=== PATIENT | male | born 1960 | race Caucasian/White ===

== ENCOUNTER 2018-10-19 08:05 | Emergency (ER) | payer BC ==
[2018-10-19] MEDS ORDERED: Sodium Chloride 0.9% 1,000 ML IV ONE (08:47)
[2018-10-19] MEDS ORDERED: Sodium Chloride 0.9% 10 ML Syringe FLUSH PRN (08:47)
[2018-10-19] MEDS ORDERED: Sodium Chloride 0.9% 2.5 ML Syringe FLUSH PRN (08:47)
[2018-10-19] MEDS ORDERED: Ketorolac 30 MG/ML SDV IVPUSH ONE (08:48)
--- NOTE | 2018-10-19 08:57 | EDM.PDOC ---
ED HPI GENERAL MEDICAL PROBLEM - General Chief Complaint: Flank Pain Stated Complaint: LOWER BACK PAIN Time Seen by Provider: 10/19/18 08:07 Source of Information: Reports: Patient History Limitations: Reports: No Limitations - History of Present Illness INITIAL COMMENTS - FREE TEXT/NARRATIVE: History of present illness: []Presents with left flank pain that started last night around 8 PM. Patient noted blood in his urine last week and has had an increase in pain that has moved now to his left lower quadrant. He denies any fevers, chills, nausea, vomiting or diarrhea. Review of systems: As per history of present illness and below otherwise all systems reviewed and negative. Past medical history: As per history of present illness and as reviewed below otherwise noncontributory. Surgical history: As per history of present illness and as reviewed below otherwise noncontributory. Social history: No reported history of drug or alcohol abuse. Family history: As per history of present illness and as reviewed below otherwise noncontributory. Physical exam: General: Well developed, well nourished in NAD HEENT: Atraumatic, normocephalic, pupils reactive, negative for conjunctival pallor or scleral icterus, mucous membranes moist, throat clear, neck supple, nontender, trachea midline. Lungs: Clear to auscultation, breath sounds equal bilaterally, chest nontender. Heart: S1S2, regular, negative for clicks, rubs, or JVD. Abdomen: NABS, Soft, nondistended, tender left lower quadrant. Negative for masses or hepatosplenomegaly. Negative for costovertebral tenderness. Pelvis: Stable nontender. Genitourinary: Deferred. Rectal: Deferred. Extremities: Atraumatic, negative for cords or calf pain. Neurovascular unremarkable. Neuro: Awake, alert, oriented. Cranial nerves II through XII unremarkable. Cerebellum unremarkable. Motor and sensory unremarkable throughout. Exam nonfocal. Skin:warm and dry Diagnostics: CDC, chemistry, UA, CT abdomen and pelvis showing an 8 mm kidney stone obstructing UVJ Therapeutics: IV Hydration ED Course: Stable Impression: Ureterolithiasis Prescriptions: Flomax, tramadol Plan: follow up Dr. Mitchell at 2 PM today Definitive disposition and diagnosis as appropriate pending reevaluation and review of above. left flank, abdomen Pain Score (Numeric/FACES): 9 - Related Data Allergies Allergy/AdvReac Type Severity Reaction Status Date / Time No Known Allergies Allergy Verified 10/19/18 08:14 Home Meds: Home Meds Tamsulosin HCl [Flomax] 0.4 mg PO DAILY #14 cap.er.24h 10/19/18 [Rx] traMADol HCl [Tramadol HCl] 50 mg PO Q6H PRN #16 tablet 10/19/18 [Rx] Past Medical History Genitourinary History: Reports: Renal Calculus - Past Surgical History HEENT Surgical History: Reports: Tonsillectomy Social & Family History - Family History Family Medical History: Unobtainable - Tobacco Use Smoking Status *Q: Former Smoker Years of Tobacco use: 10 Packs/Tins Daily: 1 Used Tobacco, but Quit: Yes Month/Year Tobacco Last Used: 8 months ago - Recreational Drug Use Recreational Drug Use: No ED ROS GENERAL - Review of Systems Review Of Systems: See Below ED EXAM, GI/ABD - Physical Exam Exam: See Below Course - Vital Signs Last Recorded V/S: Last Vital Signs Temp 97.0 F 10/19/18 08:11 Pulse 69 10/19/18 10:01 Resp 16 10/19/18 10:01 BP 132/70 10/19/18 10:01 Pulse Ox 96 10/19/18 10:01 - Orders/Labs/Meds Orders: Active Orders 24 hr Category Date Time Status Sodium Chloride 0.9% [Saline Flush] Med 10/19/18 08:47 Active 10 ml FLUSH ASDIRECTED PRN Sodium Chloride 0.9% [Saline Flush] Med 10/19/18 08:47 Active 2.5 ml FLUSH ASDIRECTED PRN Saline Lock Insert [OM.PC] Stat Oth 10/19/18 08:46 Ordered Medication Orders Sodium Chloride (Saline Flush) 10 ml FLUSH ASDIRECTED PRN PRN Reason: Keep Vein Open Sodium Chloride (Saline Flush) 2.5 ml FLUSH ASDIRECTED PRN PRN Reason: Keep Vein Open Labs: Laboratory Tests 10/19/18 10/19/18 10/19/18 Range/Units 08:20 08:23 08:23 WBC 14.67 H (4.0-11.0) K/uL RBC 5.23 (4.50-5.90) M/uL Hgb 15.7 (13.0-17.0) g/dL Hct 46.8 (38.0-50.0) % MCV 89.5 (80.0-98.0) fL MCH 30.0 (27.0-32.0) pg MCHC 33.5 (31.0-37.0) g/dL RDW Std Deviation 45.5 (28.0-62.0) fl RDW Coeff of Maryana 14 (11.0-15.0) % Plt Count 286 (150-400) K/uL MPV 11.00 (7.40-12.00) fL Neut % (Auto) 75.6 (48.0-80.0) % Lymph % (Auto) 19.4 (16.0-40.0) % [place] % (Auto) 4.8 (0.0-15.0) % Eos % (Auto) 0.1 (0.0-7.0) % Baso % (Auto) 0.1 (0.0-1.5) % Neut # (Auto) 11.1 H (1.4-5.7) K/uL Lymph # (Auto) 2.9 H (0.6-2.4) K/uL [place]ran # (Auto) 0.7 (0.0-0.8) K/uL Eos # (Auto) 0.0 (0.0-0.7) K/uL Baso # (Auto) 0.0 (0.0-0.1) K/uL Nucleated RBC % 0.0 /100WBC Nucleated RBCs # 0 K/uL Sodium 140 (136-148) mmol/L Potassium 4.3 (3.5-5.1) mmol/L Chloride 103 (98-107) mmol/L Carbon Dioxide 28.4 (21.0-32.0) mmol/L BUN 17 (7.0-18.0) mg/dL Creatinine 1.4 H (0.8-1.3) mg/dL Est Cr Clr Drug Dosing 54.43 mL/min Estimated GFR (MDRD) 52.2 ml/min Glucose 130 H (74-106) mg/dL Calcium 9.4 (8.5-10.1) mg/dL Total Bilirubin 0.5 (0.2-1.0) mg/dL AST 14 L (15-37) IU/L ALT 19 (14-63) IU/L Alkaline Phosphatase 77 (46-116) U/L Total Protein 7.1 (6.4-8.2) g/dL Albumin 3.9 (3.4-5.0) g/dL Globulin 3.2 (2.6-4.0) g/dL Albumin/Globulin Ratio 1.2 (0.9-1.6) Lipase 94 (73-393) U/L Urine Color DARK YELLOW Urine Appearance CLEAR Urine pH 5.5 (5.0-8.0) Ur Specific [place] >= 1.030 (1.001-1.035) Urine Protein NEGATIVE (NEGATIVE) mg/dL Urine Glucose (UA) NEGATIVE (NEGATIVE) mg/dL Urine Ketones TRACE H (NEGATIVE) mg/dL Urine Occult Blood TRACE-INTACT H (NEGATIVE) Urine Nitrite NEGATIVE (NEGATIVE) Urine Bilirubin NEGATIVE (NEGATIVE) Urine Urobilinogen 0.2 (<2.0) EU/dL Ur Leukocyte Esterase NEGATIVE (NEGATIVE) Urine RBC 8-10 (0-2/HPF) Urine WBC RARE (0-5/HPF) Ur Epithelial Cells FEW (NONE-FEW) Amorphous Sediment LIGHT (NEGATIVE) Urine Bacteria FEW (NEGATIVE) Urine Mucus LIGHT (NONE-MOD) Meds: Medications Generic Name Dose Route Start Last Admin Trade Name Freq PRN Reason Stop Dose Admin Sodium Chloride 10 ml 10/19/18 08:47 Saline Flush FLUSH ASDIRECTED PRN Keep Vein Open Sodium Chloride 2.5 ml 10/19/18 08:47 Saline Flush FLUSH ASDIRECTED PRN Keep Vein Open Discontinued Medications Generic Name Dose Route Start Last Admin Trade Name Freq PRN Reason Stop Dose Admin Sodium Chloride 1,000 mls @ 999 mls/hr 10/19/18 08:47 10/19/18 09:14 Normal Saline IV 10/19/18 09:47 999 mls/hr .Bolus ONE Administration Ketorolac Tromethamine 30 mg 10/19/18 08:48 10/19/18 09:13 Toradol IVPUSH 10/19/18 08:49 30 mg ONETIME ONE Administration Departure - Departure Time of Disposition: 11:12 Disposition: Home, Self-Care 01 Condition: Good Clinical Impression: Ureterolithiasis - Discharge Information *PRESCRIPTION DRUG MONITORING PROGRAM REVIEWED*: No *COPY OF PRESCRIPTION DRUG MONITORING REPORT IN PATIENT JULES: No Prescriptions: Tamsulosin HCl [Flomax] 0.4 mg PO DAILY #14 cap.er.24h traMADol HCl [Tramadol HCl] 50 mg PO Q6H PRN #16 tablet PRN Reason: Pain Referrals: PCP,Unknown [Primary Care Provider] - Chad Mitchell MD [Physician] - 10/19/18 2:00 pm (Please arrive at Dr. Mitchell' s office today 15 minutes prior to appoinment. PLease bring photo ID and insurance cards) Forms: ED Department Discharge Additional Instructions: follow up with dr mitchell at 14:00 today Care Plan Goals: Follow up with PCP and return to ed with new or worsening symptoms. - My Orders Last 24 Hours: My Active Orders 10/19/18 08:46 Saline Lock Insert [OM.PC] Stat 10/19/18 08:47 Sodium Chloride 0.9% [Saline Flush] 10 ml FLUSH ASDIRECTED PRN Sodium Chloride 0.9% [Saline Flush] 2.5 ml FLUSH ASDIRECTED PRN - Assessment/Plan Last 24 Hours: My Active Orders 10/19/18 08:46 Saline Lock Insert [OM.PC] Stat 10/19/18 08:47 Sodium Chloride 0.9% [Saline Flush] 10 ml FLUSH ASDIRECTED PRN Sodium Chloride 0.9% [Saline Flush] 2.5 ml FLUSH ASDIRECTED PRN
[2018-10-19 09:04] LABS: CARBON DIOXIDE,CO2 28.4 mmol/L (21.0-32.0); POTASSIUM,K 4.3 mmol/L (3.5-5.1)
--- NOTE | 2018-10-19 10:57 | CT ---
INDICATION: Left lower quadrant pain. TECHNIQUE: Volumetric helical scanning of the abdomen and pelvis was performed without contrast material. Coronal and sagittal reconstructions were obtained. COMPARISON: None. FINDINGS: Acutely obstructing 8 x 6 x 6 mm stone is present at the left ureteropelvic junction. Moderate hydronephrosis is demonstrated along with perinephric stranding. Multiple 1-2 mm stones are present in both renal collecting systems. An exophytic 4.5 cm cyst arises from the lateral aspect of the mid left kidney. The kidneys are otherwise unremarkable. The bladder is grossly negative. The prostate is unremarkable. No free fluid is evident. The liver is normal in size, shape and attenuation. No bile duct dilation is evident. The spleen is within normal limits. The adrenal glands are unremarkable. The pancreas is within normal limits. No lymphadenopathy is evident. The bowel is unremarkable. The lung bases are clear. The heart is normal in size. IMPRESSION: 1. Acutely obstructing 8 x 6 x 6 mm left UPJ stone. 2. Multiple 1-2 mm stones in both renal collecting systems. 3. 4.5 cm left renal parenchymal cyst. Please note that all CT scans at this facility use dose modulation, iterative reconstruction, and/or weight-based dosing when appropriate to reduce radiation dose to as low as reasonably achievable. Dictated by Isaiah Hurd MD @ Oct 19 2018 10:45AM Signed by Dr. Isaiah Hurd @ Oct 19 2018 10:55AM
== END 2018-10-19 11:28 | disposition home or self-care (01) ==
LOC: MW.ED 08:05
DX: N13.2 Hydronephrosis with renal and ureteral calculous obstruction (principal); Z87.891 Personal history of nicotine dependence
CPT/HCPCS: 36415; 74176; 80053; 81001; 83690; 84153; 85025; 96361; 96374; 99284; J1885; J7040

== ENCOUNTER 2018-10-21 08:43 | Day surgery (SDC) | payer BC ==
[~2018-10-21 08:43] MED LIST: Lactated Ringers 1,000 ML IV SCH; ceFAZolin 1 GM Vial IV ONE; ceFAZolin 1 GM in Premix Bag 1 BAG IV SCH
--- NOTE | 2018-10-21 10:26 | PCM.PREANE ---
Preanesthetic Assessment - Anesthesia/Transfusion/Family Hx Anesthesia History: Prior Anesthesia Without Reaction Family History of Anesthesia Reaction: No Transfusion History: No Prior Transfusion(s) - Review of Systems General: No Symptoms Pulmonary: No Symptoms Cardiovascular: No Symptoms Neurological: No Symptoms Other: Reports: None - Physical Assessment NPO Status Date: 10/21/18 NPO Status Time: 05:00 Vital Signs: Last Vital Signs Temp 99.0 F 10/21/18 10:10 Pulse 67 10/21/18 10:10 Resp 16 10/21/18 10:10 BP 136/81 10/21/18 10:10 Pulse Ox 99 10/21/18 10:10 Height: 5 ft 7 in Weight: 69.853 kg ASA Class: 2 Mental Status: Alert & Oriented x3 Airway Class: Mallampati = 2 Dentition: Reports: Normal Dentition ROM/Head Extension: Full Lungs: Clear to Auscultation, Normal Respiratory Effort Cardiovascular: Regular Rate, Regular Rhythm - Allergies Allergies/Adverse Reactions: Allergies Allergy/AdvReac Type Severity Reaction Status Date / Time No Known Allergies Allergy Verified 10/20/18 10:10 - Blood Blood Available: No - Anesthesia Plan Pre-Op Medication Ordered: None - Acknowledgements Anesthesia Type Planned: General Anesthesia Pt an Appropriate Candidate for the Planned Anesthesia: Yes Alternatives and Risks of Anesthesia Discussed w Pt/Guardian: Yes Pt/Guardian Understands and Agrees with Anesthesia Plan: Yes Additional Comments: PMH: none other than renal stones PLAN: get PreAnesthesia Questionnaire HEENT History: Reports: Other (See Below) Other HEENT History: has 1 upper front dental implant Genitourinary History: Reports: Renal Calculus Other Genitourinary History: has passed all stones before this Musculoskeletal History: Reports: Arthritis, Back Pain, Chronic, Fracture, Neck Pain, Chronic Other Musculoskeletal History: arthritis in hands, hx of fx finger - Past Surgical History Head Surgeries/Procedures: Reports: None HEENT Surgical History: Reports: Naso-Sinus Surgery - SUBSTANCE USE Smoking Status *Q: Former Smoker Tobacco Use Within Last Twelve Months: Cigarettes Recreational Drug Use History: No - HOME MEDS Home Medications: Home Meds Tamsulosin HCl [Flomax] 0.4 mg PO DAILY #14 cap.er.24h 10/19/18 [Rx] traMADol HCl [Tramadol HCl] 50 mg PO Q6H PRN #16 tablet 10/19/18 [Rx] - CURRENT (IN HOUSE) MEDS Current Meds: Current Medications Lactated Ringer's (Ringers, Lactated) 1,000 mls @ 100 mls/hr IV ASDIRECTED FRANCISCO J Cefazolin Sodium/Dextrose 1 gm (/ Premix) 50 mls @ 100 mls/hr IV ONCALL FRANCISCO J
[2018-10-21] MEDS ORDERED: Sugammadex Sodium 200 MG/2 ML VIAL ONE (11:56)
[2018-10-21] MEDS ORDERED: Ketorolac 30 MG/ML SDV ONE (12:01)
[2018-10-21] MEDS ORDERED: Propofol 200 MG/20 ML SDV ONE (12:01)
[2018-10-21] MEDS ORDERED: Ondansetron 4 MG/2 ML SDV ONE (12:01)
[2018-10-21] MEDS ORDERED: Rocuronium 100 MG/10 ML Syringe ONE (12:01)
[2018-10-21] MEDS ORDERED: Glycopyrrolate 0.2 MG/ML SDV ONE (12:01)
[2018-10-21] MEDS ORDERED: Lidocaine 2% 5 ML SDV ONE (12:01)
[2018-10-21] MEDS ORDERED: Midazolam 1 MG/ML 2 ML SDV ONE (12:02)
[2018-10-21] MEDS ORDERED: fentaNYL 100 MCG/2 ML SDV ONE (12:02)
[2018-10-21] MEDS ORDERED: ceFAZolin 1 GM Vial ONE (12:11)
[2018-10-21] MEDS ORDERED: Sodium Chloride 0.9% 20 ML ONE (12:11)
[2018-10-21] MEDS ORDERED: traMADol 50 MG Tab PO PRN (14:05)
--- NOTE | 2018-10-21 14:16 | PCM.POSTAN ---
POST ANESTHESIA ASSESSMENT - MENTAL STATUS Mental Status: Alert, Oriented - VITAL SIGNS Vital Signs: Last Vital Signs Temp 99.0 F 10/21/18 10:10 Pulse 89 10/21/18 14:09 Resp 17 10/21/18 14:09 BP 128/72 10/21/18 14:09 Pulse Ox 96 10/21/18 14:09 - RESPIRATORY Respiratory Status: Respiratory Rate WNL, Airway Patent, O2 Saturation Stable - CARDIOVASCULAR CV Status: Pulse Rate WNL, Blood Pressure Stable - GASTROINTESTINAL GI Status: No Symptoms - POST OP HYDRATION Hydration Status: Adequate & Stable
--- NOTE | 2018-10-21 14:17 | PCM48HPAN ---
Post Anesthesia Note - EVALUATION WITHIN 48HRS OF ANESTHETIC Vital Signs in Normal Range: Yes Patient Participated in Evaluation: Yes Respiratory Function Stable: Yes Airway Patent: Yes Cardiovascular Function Stable: Yes Hydration Status Stable: Yes Pain Control Satisfactory: Yes Nausea and Vomiting Control Satisfactory: Yes Mental Status Recovered: Yes Vital Signs: Last Vital Signs Temp 99.0 F 10/21/18 10:10 Pulse 89 10/21/18 14:09 Resp 17 10/21/18 14:09 BP 128/72 10/21/18 14:09 Pulse Ox 96 10/21/18 14:09
--- NOTE | 2018-10-21 21:32 | OR ---
SURGEON: Chad Mitchell M.D. DATE OF PROCEDURE: 10/21/2018 PREOPERATIVE DIAGNOSIS: 8 mm left upper ureteral stone. POSTOPERATIVE DIAGNOSIS: 8 mm left upper ureteral stone. OPERATION: Extracorporeal shock-wave lithotripsy. DESCRIPTION: The patient was given general anesthesia. He was on the lithotripsy table. Position of the patient was adjusted, so the stone could be treated, and eventually received 2400 shocks. Total observation above the stone. At the end of the treatment, the shadow of the stone somewhat changed, but did not change significantly enough to walk away without putting a stent in. The other observation was the stone was moving with the pulse of the patient on fluoroscopy to the extent that I had to go back and look at the CT scan to see why, and it appeared that there was a small blood vessel that goes adjacent to that part of the ureter on its way to the colon. At any rate, the patient remained stable; and at the end, I had to put a double-J stent in. A 6 x 26 stent was placed. The position of that was confirmed on fluoroscopy. The bladder was emptied, and the patient was moved to the recovery room in stable condition. I will see the patient this coming Thursday to go over the details of what happened today and arrange for him to have the rest, which will have to be ureteroscopy and laser lithotripsy. CATARINA / KERON /[id number]
[2018-10-22] MEDS ORDERED: Tamsulosin 0.4 MG Cap.ER PO SCH (09:00)
== END 2018-10-21 14:40 | disposition home or self-care (01) ==
LOC: MW.SDS 08:43
PROVIDERS: ATTEND Urology
DX: N20.1 Calculus of ureter (principal); Z87.891 Personal history of nicotine dependence
CPT/HCPCS: C2617; J0690; J1885; J2001; J2250; J2405; J2704; J3010; J3490; J7120